=== PATIENT | male | born 1985 | race Two or more races ===

== ENCOUNTER 2018-10-10 22:46 | Emergency (ER) | payer BC, OTHER ==
[~2018-10-10] VITALS: Ht 177.8 cm; Wt 115.7 kg
[2018-10-10] MEDS ORDERED: cefTRIAXone SOD 1,000 MG VL ONE (22:53)
[2018-10-10] MEDS ORDERED: MORPHINE SULFATE 4 MG/ML SYR/VIAL ONE (22:53)
[2018-10-10] MEDS ORDERED: MORPHINE SULFATE 4 MG/ML SYR/VIAL IV ONE ×2 (23:15)
[2018-10-10] MEDS ORDERED: SODIUM CHLORIDE 0.9% 1,000 ML IV ONE (23:15)
[2018-10-10] MEDS ORDERED: cefTRIAXone 1GM/50ML D5W 50 ML IV ONE (23:15)
[2018-10-10] MEDS ORDERED: HYDROmorphone HCL 2 MG/ML VL IV ONE (23:45)
[2018-10-11] MEDS ORDERED: HYDROmorphone HCL 2 MG/ML VL IV ONE (03:30)
[2018-10-11 04:05] LABS: Amphetamine Screen, Urine NEGATIVE (NEGATIVE); Barbiturate Scree,Urine NEGATIVE (NEGATIVE); Benzodiazephine Screen, Urine NEGATIVE (NEGATIVE); Cannabinoid Screen, Urine POSITIVE (NEGATIVE); Cocaine Screen, Urine POSITIVE (NEGATIVE); Opiate Scree,Urine POSITIVE (NEGATIVE); Phencyclidine Screen, Urine NEGATIVE (NEGATIVE)
[2018-10-11 04:50] VITALS: BP 136/83
== END 2018-10-11 05:19 | disposition short-term general hospital (02) ==
LOC: EDBD 22:46 → ER 22:46
DX: S52.302B Unspecified fracture of shaft of left radius, initial encounter for open fracture type I or II (principal); S52.202B Unspecified fracture of shaft of left ulna, initial encounter for open fracture type I or II; S62.315A Displaced fracture of base of fourth metacarpal bone, left hand, initial encounter for closed fracture; S62.317A Displaced fracture of base of fifth metacarpal bone, left hand, initial encounter for closed fracture; V86.59XA Driver of other special all-terrain or other off-road motor vehicle injured in nontraffic accident, initial encounter; Y93.89 Activity, other specified; Y99.8 Other external cause status; Y92.89 Other specified places as the place of occurrence of the external cause
CPT/HCPCS: 29125; 36415; 70450; 72125; 73090; 74176; 80307; 80320; 96374; 96375; 96376; 99285; J0696; J1170; J2270